=== PATIENT | male | born 1975 | race Caucasian/White ===

== ENCOUNTER 2023-02-19 12:18 | Emergency (ER) | payer OTHER ==
[2023-02-19 12:46] VITALS: TEMP 98.7
--- NOTE | 2023-02-19 13:42 | ED ---
Recheck HPI - General Chief Complaint: Recheck/Abnormal Lab/Rx Stated Complaint: edema in legs and feet Time Seen by Provider: 02/19/23 12:37 Source: patient, RN notes reviewed, old records reviewed Mode of arrival: ambulatory Limitations: no limitations - History of Present Illness Initial Comments: This is a 48-year-old male the ER today. Presents today for evaluation of lower extremity edema swelling and states is been off his medications and take medications as prescribed. Patient is no shortness of breath cough congestion chest pain, patient has no other significant complaint here in the ER. MD Complaint: medication refill request -: week(s) Returns Today for: request for prescription Symptoms Since Prior Visit: no new symptoms Context: planned re-check, ran out of medication Associated Symptoms: none Treatments Prior to Arrival: other (0) - Related Data Home Medications Medication Instructions Recorded Confirmed Ofloxacin 0.3% Otic Soln [Floxin 5 drops RIGHT EAR BID 09/22/14 09/22/14 Ear Drops] Previous Rx's Medication Instructions Recorded Amoxicillin/Potassium Clav 1 each PO Q12HR #20 tab 09/22/14 [Augmentin 875-125 Tablet] DULoxetine HCL [Cymbalta] 30 mg PO DAILY #60 cap 02/19/23 metFORMIN HCL [Glucophage] 500 mg PO BID #60 tab 02/19/23 Allergies Allergy/AdvReac Type Severity Reaction Status Date / Time No Known Allergies Allergy Verified 02/19/23 12:27 Review of Systems ROS Statement: Those systems with pertinent positive or pertinent negative responses have been documented in the HPI. ROS Other: All systems not noted in ROS Statement are negative. Past Medical History Past Medical History: Diabetes Mellitus History of Any Multi-Drug Resistant Organisms: None Reported Past Surgical History: No Surgical Hx Reported Past Psychological History: Anxiety Smoking Status: Never smoker Past Alcohol Use History: None Reported Past Drug Use History: None Reported General Exam Limitations: no limitations General appearance: alert, in no apparent distress Head exam: Present: atraumatic, normocephalic, normal inspection Eye exam: Present: normal appearance, PERRL, EOMI. Absent: scleral icterus, conjunctival injection, periorbital swelling ENT exam: Present: normal exam, mucous membranes moist Neck exam: Present: normal inspection. Absent: tenderness, meningismus, lymphadenopathy Respiratory exam: Present: normal lung sounds bilaterally. Absent: respiratory distress, wheezes, rales, rhonchi, stridor Cardiovascular Exam: Present: regular rate, normal rhythm, normal heart sounds. Absent: systolic murmur, diastolic murmur, rubs, gallop, clicks GI/Abdominal exam: Present: soft, normal bowel sounds. Absent: distended, tenderness, guarding, rebound, rigid Extremities exam: Present: normal inspection, full ROM, normal capillary refill. Absent: tenderness, pedal edema, joint swelling, calf tenderness Back exam: Present: normal inspection Neurological exam: Present: alert, oriented X3, CN II-XII intact Psychiatric exam: Present: normal affect, normal mood Skin exam: Present: warm, dry, intact, normal color. Absent: rash Course Vital Signs 02/19/23 02/19/23 12:24 13:54 Temperature 98.7 F Pulse Rate 115 H 98 Respiratory 20 18 Rate Blood Pressure 126/84 122/80 O2 Sat by Pulse 99 97 Oximetry - Reevaluation(s) Reevaluation #1: Medical records reviewed Reevaluation #2: Patient is in no distress here in the emergency department Reevaluation #3: Patient informed of results and questions answered Reevaluation #4: Was pt. sent in by a medical professional or institution (, PA, [employer], urgent care, hospital, or fpc...) When possible be specific @ -no Did you speak to anyone other than the patient for history (EMS, parent, family, police, friend...)? What history was obtained from this source @ -no Did you review nursing and triage notes (agree or disagree)? Why? @ -agree Are old charts reviewed (outside hosp., previous admission, EMS record, old EKG, old radiological studies, urgent care reports/EKG's, fpc records)? Report findings @ -yes Differential Diagnosis (chest pain, altered mental status, abdominal pain women, abdominal pain men, vaginal bleeding, weakness, fever, dyspnea, syncope, headache, dizziness, GI bleed, back pain, seizure, CVA, palpatations, mental health, musculoskeletal)? @ -prior EKG interpreted by me (3pts min.). @ -no X-rays interpreted by me (1pt min.). @ -no CT interpreted by me (1pt min.). @ -no U/S interpreted by me (1pt. min.). @ -no What testing was considered but not performed or refused? (CT, X-rays, U/S, labs)? Why? @ -none What meds were considered but not given or refused? Why? @ -none Did you discuss the management of the patient with other professionals (professionals i.e. , PA, [employer], lab, RT, psych nurse, licensed social worker, bindery helper, teacher, security control room officer, showcase trimmer)? Give summary @ -no Was smoking cessation discussed for >3mins.? @ -no Was critical care preformed (if so, how long)? @ -no Were there social determinants of health that impacted care today? How? (Homelessness, low income, unemployed, alcoholism, drug addiction, transportation, low edu. Level, literacy, decrease access to med. care, shelter, rehab)? @ -none Was there de-escalation of care discussed even if they declined (Discuss DNR or withdrawal of care, Hospice)? DNR status @ -no What co-morbidities impacted this encounter? (DM, HTN, Smoking, COPD, CAD, Cancer, CVA, ARF, Chemo, Hep., AIDS, mental health diagnosis, sleep apnea, morbid obesity)? @ -none Was patient admitted / discharged? Hospital course, mention meds given and route, prescriptions, significant lab abnormalities, going to OR and other pertinent info. @ - 48 male to the emergency department for evaluation of lower extremity edema, patient's request for medication refill, he is without significant complaint Discharge Undiagnosed new problem with uncertain prognosis? @ -no Drug Therapy requiring intensive monitoring for toxicity (Heparin, Nitro, Insulin, Cardizem)? @ -no Were any procedures done? @ -no Diagnosis/symptom? @ -Medication refill with leg edema Acute, or Chronic, or Acute on Chronic? @ -Acute Uncomplicated (without systemic symptoms) or Complicated (systemic symptoms)? @ -Complicated Side effects of treatment? @ -no Exacerbation, Progression, or Severe Exacerbation? @ -exacerbation Poses a threat to life or bodily function? How? (Chest pain, [place], [place], pneumonia, PE, COPD, DKA, ARF, appy, cholecystitis, CVA, Diverticulitis, Homicidal, Suicidal, threat to staff... and all critical care pts) @ -yes . Medical noncompliance Reevaluation #5: Differential Dyspnea: Coronary syndrome, arrhythmia, tamponade, asthma, COPD, pulmonary embolism, pneumonia, pneumothorax, pulmonary effusion, anaphylaxis, diabetic ketoacidosis, flailed chest, pulmonary contusion, diaphragmatic rupture, anemia, neuromuscular, this is not meant to be an all-inclusive list. Medical Decision Making - Medical Decision Making 48 male to the emergency department for evaluation of lower extremity edema, patient's request for medication refill, he is without significant complaint Disposition Clinical Impression: Encounter for medication refill, Bilateral leg edema Disposition: HOME SELF-CARE Condition: Good Instructions (If sedation given, give patient instructions): Medicine Refill (ED) Prescriptions: DULoxetine HCL [Cymbalta] 30 mg PO DAILY #60 cap metFORMIN HCL [Glucophage] 500 mg PO BID #60 tab Is patient prescribed a controlled substance at d/c from ED?: No Referrals: Freya Tidwell DO [Primary Care Provider] - 1-2 days Time of Disposition: 13:40
[2023-02-19 14:14] VITALS: BP 122/80; PULSE 98; RESP 18
== END 2023-02-19 13:55 | disposition home or self-care (01) ==
LOC: EC 12:18
DX: Z76.0 Encounter for issue of repeat prescription (principal); R60.0 Localized edema; E11.9 Type 2 diabetes mellitus without complications; Z86.59 Personal history of other mental and behavioral disorders
CPT/HCPCS: 99283

== ENCOUNTER 2024-06-15 10:13 | Emergency (ER) | payer OTHER ==
[2024-06-15 10:19] LABS: Glucose,Whole Blood 390 mg/dL (70-110)
--- NOTE | 2024-06-15 10:38 | ED ---
Recheck HPI - General Chief Complaint: Recheck/Abnormal Lab/Rx Stated Complaint: Leg Pain Weakness Time Seen by Provider: 06/15/24 10:38 Source: patient, RN notes reviewed Mode of arrival: ambulatory Limitations: no limitations - History of Present Illness Initial Comments: 41-year-old male with a past medical history significant of diabetes mellitus type 2 presenting to the emergency department for evaluation of bilateral feet pain. Patient states he has known neuropathy and reports for the past 2 days he has had extreme pain to bilateral feet. He has not taken anything for pain at this time. He has tried gabapentin in the past but states it made him have mood swings and he stopped taking it. Patient also reports his sugars have been high. He does not check his sugars at home and takes metformin 500 mg twice daily. He has been taking his medication as prescribed. He also takes baby aspirin and Lipitor. Patient states he is following up with his PCP but as he does not have a vehicle at this time is having difficulties following up with them. He denies any fevers, chills, nausea, vomiting, chest pain, shortness of breath, dizziness, lightheadedness, headache, abdominal pain, urinary complaints or peripheral edema. - Related Data Home Medications Medication Instructions Recorded Confirmed Aspirin EC [Ecotrin Low Dose] 81 mg PO HS 06/15/24 06/15/24 Gabapentin [Neurontin] 300 mg PO BID PRN 06/15/24 06/15/24 Rosuvastatin [Crestor] 10 mg PO DAILY 06/15/24 06/15/24 lisinopriL [Zestril] 5 mg PO HS 06/15/24 06/15/24 Previous Rx's Medication Instructions Recorded metFORMIN HCL [Glucophage] 500 mg PO BID #60 tab 02/19/23 Allergies Allergy/AdvReac Type Severity Reaction Status Date / Time No Known Allergies Allergy Verified 06/15/24 11:41 Review of Systems ROS Statement: Those systems with pertinent positive or pertinent negative responses have been documented in the HPI. ROS Other: All systems not noted in ROS Statement are negative. Past Medical History Past Medical History: Diabetes Mellitus History of Any Multi-Drug Resistant Organisms: None Reported Past Surgical History: No Surgical Hx Reported Past Psychological History: Anxiety Smoking Status: Never smoker Past Alcohol Use History: None Reported Past Drug Use History: None Reported General Exam Limitations: no limitations General appearance: alert, in no apparent distress Respiratory exam: Present: normal lung sounds bilaterally. Absent: respiratory distress, wheezes, rales, rhonchi, stridor Cardiovascular Exam: Present: regular rate, normal rhythm, normal heart sounds. Absent: systolic murmur, diastolic murmur, rubs, gallop, clicks Extremities exam: Present: normal inspection, full ROM, normal capillary refill (2+ DP/PT bilateral pulses). Absent: tenderness, pedal edema, joint swelling, calf tenderness Neurological exam: Present: alert, oriented X3, CN II-XII intact Skin exam: Present: warm, dry, intact, normal color, other (no wounds/ulcers/rashes/skin breakdown). Absent: rash Course Vital Signs 06/15/24 06/15/24 10:15 12:51 Temperature 97.3 F L 97.9 F Pulse Rate 70 91 Respiratory 17 18 Rate Blood Pressure 123/87 130/90 O2 Sat by Pulse 95 100 Oximetry Medical Decision Making - Medical Decision Making Was pt. sent in by a medical professional or institution (, PA, BUSINESS IMPROVEMENT MANAGER, urgent care, hospital, or [facility]...) When possible be specific @ -No Did you speak to anyone other than the patient for history (EMS, parent, family, police, friend...)? What history was obtained from this source @ -No Did you review nursing and triage notes (agree or disagree)? Why? @ -I reviewed and agree with nursing and triage notes Were old charts reviewed (outside hosp., previous admission, EMS record, old EKG, old radiological studies, urgent care reports/EKG's, [facility] records)? Report findings @ -No old charts were reviewed Differential Diagnosis (chest pain, altered mental status, abdominal pain women, abdominal pain men, vaginal bleeding, weakness, fever, dyspnea, syncope, headache, dizziness, GI bleed, back pain, seizure, CVA, palpatations, mental health, musculoskeletal)? @ -Differential Musculoskeletal: Muscular strain, contusion, ligament sprain, fracture, arthritis, septic arthritis, bursitis, cellulitis, muscle spasm, nerve compression, DVT, arterial occlusion, herpes zoster, electrolyte abnormality, tumor.... This is not meant to be in all inclusive list EKG interpreted by me (3pts min.). @ -None done X-rays interpreted by me (1pt min.). @ -None done CT interpreted by me (1pt min.). @ -None done U/S interpreted by me (1pt. min.). @ -None done What testing was considered but not performed or refused? (CT, X-rays, U/S, labs)? Why? @ -None What meds were considered but not given or refused? Why? @ -Patient refused gabapentin and narcotics Did you discuss the management of the patient with other professionals (professionals i.e. , PA, BUSINESS IMPROVEMENT MANAGER, lab, RT, psych nurse, professor of social work, facilities operations technician, teacher, traffic maintenance officer, caseworker intake)? Give summary @ -Case management spoke with patient regarding further diabetes management. PCP follow-up scheduled by caseworker intake Was smoking cessation discussed for >3mins.? @ -No Was critical care preformed (if so, how long)? @ -No Were there social determinants of health that impacted care today? How? (Homelessness, low income, unemployed, alcoholism, drug addiction, transportation, low edu. Level, literacy, decrease access to med. care, residential, rehab)? @ -Patient does not currently have transportation Was there de-escalation of care discussed even if they declined (Discuss DNR or withdrawal of care, Hospice)? DNR status @ -No What co-morbidities impacted this encounter? (DM, HTN, Smoking, COPD, CAD, Cancer, CVA, ARF, Chemo, Hep., AIDS, mental health diagnosis, sleep apnea, morbid obesity)? @ -Diabetes mellitus Was patient admitted / discharged? Hospital course, mention meds given and route, prescriptions, significant lab abnormalities, going to OR and other pertinent info. @ -Discharged. 49-year-old male presented ER for evaluated bilateral feet pain. Vitals acceptable limits. Bilateral lower extremities are neurovascularly i ntact. There are no wounds or skin breakdown noted. Patient has full active range of motion. Given patient's history of diabetes, laboratory studies were obtained patient is hyperglycemic at 371 for which he received 5 units subcutaneous insulin. Positive acetone the patient is not acidotic. Anion gap 9. Repeat blood sugar 380. Patient received another 5 units subcutaneous insulin. Symptomatic control in the ER, with minor improvement. Case management spoke with patient and established close PCP follow-up. Resources provided to patient for further diabetes management. Conservative treatment options discussed. I advised [id number] medications for pain control as patient refuses narcotics and gabapentin. Continue metformin. Patient is stable for discharge with close outpatient follow-up to PCP. Return parameters discussed. Patient discharged stable condition. Patient verbally expressed understanding and agreement with care plan. Case discussed with ED attending, Stacy. Undiagnosed new problem with uncertain prognosis? @ -No Drug Therapy requiring intensive monitoring for toxicity (Heparin, Nitro, Insulin, Cardizem)? @ -No Were any procedures done? @ -No Diagnosis/symptom? @ -Neuropathy/diabetes mellitus Acute, or Chronic, or Acute on Chronic? @ -Acute/chronic Uncomplicated (without systemic symptoms) or Complicated (systemic symptoms)? @ -Uncomplicated Side effects of treatment? @ -No Exacerbation, Progression, or Severe Exacerbation? @ -No Poses a threat to life or bodily function? How? (Chest pain, [place], [place], pneumonia, PE, COPD, DKA, ARF, appy, cholecystitis, CVA, Diverticulitis, Homicidal, Suicidal, threat to staff... and all critical care pts) @ -No - Lab Data Result diagrams: 06/15/24 10:49 06/15/24 10:49 Lab Results 06/15/24 06/15/24 06/15/24 Range/Units 10:18 10:49 10:49 WBC 6.53 (4.50-10.00) 10*3/uL RBC 5.05 (4.40-5.60) 10*6/uL Hgb 15.9 (13.0-17.0) g/dL Hct 44.4 (39.6-50.0) % MCV 87.9 (80.0-97.0) fL MCH 31.5 (27.0-32.0) pg MCHC 35.8 (32.0-37.0) g/dL Plt Count 192 (140-440) 10*3/uL MPV 11.8 (9.5-12.2) fL Immature Gran % (Auto) 0.2 % Neutrophils % 63.1 % Lymphocytes % 29.2 % Monocytes % 5.8 % Eosinophils % 1.1 % Basophils % 0.6 % Immature Gran # 0.01 (0.00-0.04) 10*3/uL Neutrophils # 4.12 (1.80-7.70) 10*3/uL Lymphocytes # 1.91 (0.90-5.00) 10*3/uL Monocytes # 0.38 (0.20-1.00) 10*3/uL Eosinophils # 0.07 (0.04-0.35) 10*3/uL Basophils # 0.04 (0.00-0.10) 10*3/uL Sodium 134 L (137-145) mmol/L Potassium 4.4 (3.5-5.1) mmol/L Chloride 95 L (98-107) mmol/L Carbon Dioxide 30 (22-30) mmol/L Anion Gap 9 mmol/L BUN 19 (9-20) mg/dL Creatinine 0.68 (0.66-1.25) mg/dL Est GFR (CKD-EPI)AfAm >90 (>60 ml/min/1.73 sqM) Est GFR (CKD-EPI)NonAf >90 (>60 ml/min/1.73 sqM) Glucose 371 H (74-99) mg/dL POC Glucose (mg/dL) 390 H (70-110) mg/dL POC Glu Scientific Research Manager ID Mikala Cindy Calcium 10.1 (8.4-10.2) mg/dL Total Bilirubin 0.7 (0.2-1.3) mg/dL AST 17 (17-59) U/L ALT 15 (4-49) U/L Alkaline Phosphatase 84 (38-126) U/L Total Protein 7.0 (6.3-8.2) g/dL Albumin 4.7 (3.5-5.0) g/dL Acetone, Qual Positive (Negative) 06/15/24 Range/Units 12:31 WBC (4.50-10.00) 10*3/uL RBC (4.40-5.60) 10*6/uL Hgb (13.0-17.0) g/dL Hct (39.6-50.0) % MCV (80.0-97.0) fL MCH (27.0-32.0) pg MCHC (32.0-37.0) g/dL Plt Count (140-440) 10*3/uL MPV (9.5-12.2) fL Immature Gran % (Auto) % Neutrophils % % Lymphocytes % % Monocytes % % Eosinophils % % Basophils % % Immature Gran # (0.00-0.04) 10*3/uL Neutrophils # (1.80-7.70) 10*3/uL Lymphocytes # (0.90-5.00) 10*3/uL Monocytes # (0.20-1.00) 10*3/uL Eosinophils # (0.04-0.35) 10*3/uL Basophils # (0.00-0.10) 10*3/uL Sodium (137-145) mmol/L Potassium (3.5-5.1) mmol/L Chloride (98-107) mmol/L Carbon Dioxide (22-30) mmol/L Anion Gap mmol/L BUN (9-20) mg/dL Creatinine (0.66-1.25) mg/dL Est GFR (CKD-EPI)AfAm (>60 ml/min/1.73 sqM) Est GFR (CKD-EPI)NonAf (>60 ml/min/1.73 sqM) Glucose (74-99) mg/dL POC Glucose (mg/dL) 380 H (70-110) mg/dL POC Glu Scientific Research Manager ID Kerwin Lety Calcium (8.4-10.2) mg/dL Total Bilirubin (0.2-1.3) mg/dL AST (17-59) U/L ALT (4-49) U/L Alkaline Phosphatase (38-126) U/L Total Protein (6.3-8.2) g/dL Albumin (3.5-5.0) g/dL Acetone, Qual (Negative) Disposition Clinical Impression: Neuropathy Disposition: HOME SELF-CARE Condition: Stable Instructions (If sedation given, give patient instructions): Diabetic Peripheral Neuropathy (ED), Diabetes and Nutrition (ED), Type 2 Diabetes Management for Adults (ED) Additional Instructions: Dial 211 for community resources in your area. You will be connected with someone that is able to give you more specific resources. Is patient prescribed a controlled substance at d/c from ED?: No Referrals: Nonstaff,Physician [Primary Care Provider] - 06/19/24 10:30 am (Appointment with CHANELL García [id number] [facility] phone:[phone]) Forms: Community Resources Time of Disposition: 12:17
[2024-06-15] MEDS: SODIUM CHLORIDE 0.9% 1,000 ML IV ONE (10:51)
[2024-06-15] MEDS: KETOROLAC 15 MG/ML 1 ML VIAL IVP STA (10:52)
[2024-06-15 10:59] LABS: Basophils # (A) 0.04 10*3/uL (0.00-0.10); Basophils % (A) 0.6 %; Eosinophils # (A) 0.07 10*3/uL (0.04-0.35); Eosinophils % (A) 1.1 %; HCT 44.4 % (39.6-50.0); HGB 15.9 g/dL (13.0-17.0); Lymphocytes # (A) 1.91 10*3/uL (0.90-5.00); Lymphocytes % (A) 29.2 %; MCH 31.5 pg (27.0-32.0); MCHC 35.8 g/dL (32.0-37.0); MCV 87.9 fL (80.0-97.0); Mean Platelet Volume 11.8 fL (9.5-12.2); Monocytes # (A) 0.38 10*3/uL (0.20-1.00); Monocytes % (A) 5.8 %; Neutrophils # (A) 4.12 10*3/uL (1.80-7.70); Neutrophils % (A) 63.1 %; Platelet Count 192 10*3/uL (140-440); RBC 5.05 10*6/uL (4.40-5.60); RDW 11.9 % (11.5-14.5); WBC 6.53 10*3/uL (4.50-10.00)
[2024-06-15 11:19] LABS: ALT 15 U/L (4-49); AST 17 U/L (17-59); African American GFR (CKD) >90 (>60 ml/min/1.73 sqM); Albumin 4.7 g/dL (3.5-5.0); Alkaline Phosphatase 84 U/L (38-126); Anion Gap 9 mmol/L; Blood Urea Nitrogen 19 mg/dL (9-20); Calcium 10.1 mg/dL (8.4-10.2); Carbon Dioxide 30 mmol/L (22-30); Chloride 95 mmol/L (98-107); Glucose 371 mg/dL (74-99); Non-African American GFR(CKD) >90 (>60 ml/min/1.73 sqM); Potassium 4.4 mmol/L (3.5-5.1); Sodium 134 mmol/L (137-145); Total Bilirubin 0.7 mg/dL (0.2-1.3)
[2024-06-15] MEDS: INSULIN LISPRO (HumaLOG) 100 UNIT/ML 10 mL VL SQ ONE ×2 (12:03→12:47)
[2024-06-15] MEDS: ACETAMINOPHEN TAB 500 MG TAB PO STA (12:04)
[2024-06-15 12:33] LABS: Glucose,Whole Blood 380 mg/dL (70-110)
[2024-06-15 12:53] VITALS: BP 130/90; PULSE 91; RESP 18; TEMP 97.9
== END 2024-06-15 12:52 | disposition home or self-care (01) ==
LOC: EC 10:13
DX: E11.40 Type 2 diabetes mellitus with diabetic neuropathy, unspecified (principal)
CPT/HCPCS: 36415; 80053; 82009; 85025; 99283; 96374; 96361; J1885

== ENCOUNTER 2024-08-28 08:53 | Emergency (ER) | payer OTHER ==
--- NOTE | 2024-08-28 09:31 | ED ---
General Adult HPI - General Source: patient, RN notes reviewed Mode of arrival: wheelchair Limitations: no limitations <Reji Shetty - Last Filed: 09/02/24 06:21> <Rolando Colón - Last Filed: 09/04/24 07:13> - General Stated complaint: Hypoclycemia Time Seen by Provider: 08/28/24 09:31 - History of Present Illness Initial comments: Quick note: 49-year-old male presented the ER for evaluation of numerous complaints. Patient is a known type II diabetic and states he believes his sugar is low. Patient also reports neuropathy and sore muscles. (Reji Shetty) - Related Data Home Medications Medication Instructions Recorded Confirmed Aspirin EC [Ecotrin Low Dose] 81 mg PO HS 06/15/24 06/15/24 Gabapentin [Neurontin] 300 mg PO BID PRN 06/15/24 06/15/24 Rosuvastatin [Crestor] 10 mg PO DAILY 06/15/24 06/15/24 lisinopriL [Zestril] 5 mg PO HS 06/15/24 06/15/24 Previous Rx's Medication Instructions Recorded metFORMIN HCL [Glucophage] 500 mg PO BID #60 tab 02/19/23 Allergies Allergy/AdvReac Type Severity Reaction Status Date / Time No Known Allergies Allergy Verified 08/28/24 09:54 Review of Systems ROS Other: All systems not noted in ROS Statement are negative. <Reji Shetty - Last Filed: 09/02/24 06:21> ROS Other: All systems not noted in ROS Statement are negative. <Rolando Colón - Last Filed: 09/04/24 07:13> ROS Statement: Those systems with pertinent positive or pertinent negative responses have been documented in the HPI. Past Medical History Past Medical History: Diabetes Mellitus History of Any Multi-Drug Resistant Organisms: None Reported Past Surgical History: No Surgical Hx Reported Past Psychological History: Anxiety Smoking Status: Never smoker Past Alcohol Use History: None Reported Past Drug Use History: None Reported <Reji Shetty - Last Filed: 09/02/24 06:21> General Exam <Reji Shetty - Last Filed: 09/02/24 06:21> - General Exam Comments Initial Comments: Visual Physical Exam Vital signs reviewed General: Well-appearing, nontoxic, no acute distress. Head: Normocephalic, atraumatic Eyes: PERRLA, EOMI ENT: Airway patent Chest: Nonlabored breathing Skin: No visual rash, normal skin tone Neuro: Alert and oriented 3 Musculoskeletal: No gross abnormalities (Reji Shetty) Course Vital Signs 08/28/24 09:51 Temperature 98.6 F Pulse Rate 106 H Respiratory 22 Rate Blood Pressure 128/88 O2 Sat by Pulse 99 Oximetry Medical Decision Making <Reji Shetty - Last Filed: 09/02/24 06:21> - Medical Decision Making I performed the quick note portion of this chart. Electronically signed by Reji Leahy PA-C Patient eloped from emergency department prior to completion of medical treatment. (Reij Shetty) - Lab Data Lab Results 08/28/24 Range/Units 10:46 POC Glucose (mg/dL) 418 H (70-110) mg/dL POC Glu Phlebotomist Medical Lab Assistant ID Almaz Bazan Disposition Time of Disposition: 06:22 <Reji Shetty - Last Filed: 09/02/24 06:21> <Rolando Colón - Last Filed: 09/04/24 07:13> Clinical Impression: Left against medical advice, Dizziness Disposition: LEFT AGAINST MEDICAL ADVICE Condition: Undetermined Referrals: None,Stated [Primary Care Provider] - 1-2 days Forms: Area PCPs
[2024-08-28 09:54] VITALS: BP 128/88; PULSE 106; RESP 22; TEMP 98.6
[2024-08-28 10:59] LABS: Glucose,Whole Blood 418 mg/dL (70-110)
== END 2024-08-28 10:00 | disposition left against medical advice (07) ==
LOC: EC 08:53
DX: R42 Dizziness and giddiness (principal); Z53.29 Procedure and treatment not carried out because of patient's decision for other reasons
CPT/HCPCS: 36415; 99284

== ENCOUNTER 2024-10-03 19:53 | Emergency (ER) | payer OTHER ==
[2024-10-03 20:02] LABS: Glucose,Whole Blood 486 mg/dL (70-110)
[2024-10-03 20:04] VITALS: RESP 17; TEMP 97.9
--- NOTE | 2024-10-03 20:32 | ED ---
Weakness HPI - General Chief complaint: Weakness Stated complaint: Hyperglycemia Time Seen by Provider: 10/03/24 20:30 Source: patient, EMS, RN notes reviewed, old records reviewed Mode of arrival: EMS Limitations: no limitations - History of Present Illness Initial comments: 49-year-old male presented to the ER via EMS for evaluation of weakness. Patient presenting from [facility] currently residing there for EtOH and cocaine abuse he reports he has been there for approximately 1 week. Patient was a past medical history significant of noncompliant insulin-dependent diabetes mellitus. He reports around 6 PM this evening while in a [employer] service he started to feel very weak, lethargic and dizzy. Patient reports feeling nauseous at that time but denies actual vomiting. Patient also admits to shortness of breath but denies any chest pain, pressure or palpitations. Denies recent fevers or chills. Patient denies any current headache, double blurry vision, slurred speech, chest pain, shortness of breath, abdominal pain, diarrhea/constipation, urinary complaints or peripheral edema. Patient does admit to a history of neuropathy. Per [facility] records patient received Novolin 5-10 units and metformin 500 mg prior to dinner at 4:20 PM. - Related Data Home Medications Medication Instructions Recorded Confirmed Aspirin EC [Ecotrin Low Dose] 81 mg PO HS 06/15/24 06/15/24 Gabapentin [Neurontin] 300 mg PO BID PRN 06/15/24 06/15/24 Rosuvastatin [Crestor] 10 mg PO DAILY 06/15/24 06/15/24 lisinopriL [Zestril] 5 mg PO HS 06/15/24 06/15/24 Previous Rx's Medication Instructions Recorded metFORMIN HCL [Glucophage] 500 mg PO BID #60 tab 02/19/23 Allergies Allergy/AdvReac Type Severity Reaction Status Date / Time No Known Allergies Allergy Verified 10/03/24 20:04 Review of Systems ROS Statement: Those systems with pertinent positive or pertinent negative responses have been documented in the HPI. ROS Other: All systems not noted in ROS Statement are negative. Past Medical History Past Medical History: Diabetes Mellitus Additional Past Medical History / Comment(s): Neuropathy History of Any Multi-Drug Resistant Organisms: None Reported Past Surgical History: No Surgical Hx Reported Additional Past Surgical History / Comment(s): Wrist reconstructive surgery Past Psychological History: Anxiety Smoking Status: Never smoker Past Alcohol Use History: Abuse Past Drug Use History: Cocaine General Exam Limitations: no limitations General appearance: alert, in no apparent distress Eye exam: Present: normal appearance, PERRL, EOMI. Absent: scleral icterus, conjunctival injection, periorbital swelling Pupils: Present: normal accommodation ENT exam: Present: normal exam, normal oropharynx, mucous membranes moist Respiratory exam: Present: normal lung sounds bilaterally. Absent: respiratory distress, wheezes, rales, rhonchi, stridor Cardiovascular Exam: Present: regular rate, normal rhythm, normal heart sounds. Absent: systolic murmur, diastolic murmur, rubs, gallop, clicks GI/Abdominal exam: Present: soft, normal bowel sounds. Absent: distended, tenderness, guarding, rebound, rigid Extremities exam: Present: normal inspection, full ROM, normal capillary refill. Absent: tenderness, pedal edema, joint swelling, calf tenderness Neurological exam: Present: alert, oriented X3, CN II-XII intact Skin exam: Present: warm, dry, intact, normal color. Absent: rash Course Vital Signs 10/03/24 10/03/24 10/04/24 20:00 22:42 00:14 Temperature 97.9 F Pulse Rate 94 89 80 Respiratory 17 17 17 Rate Blood Pressure 119/92 125/90 123/88 O2 Sat by Pulse 99 99 96 Oximetry Medical Decision Making - Medical Decision Making Was pt. sent in by a medical professional or institution (BORIS Elias, CHILD AND YOUTH PROGRAM ASSISTANT, urgent care, hospital, or [place] health care facility...) When possible be specific @ -Patient sent by [facility] for evaluation of weakness. Did you speak to anyone other than the patient for history (EMS, parent, family, police, friend...)? What history was obtained from this source @ -No Did you review nursing and triage notes (agree or disagree)? Why? @ -I reviewed and agree with nursing and triage notes Were old charts reviewed (outside hosp., previous admission, EMS record, old EKG, old radiological studies, urgent care reports/EKG's, [place] health care facility records)? Report findings @ -No old charts were reviewed Differential Diagnosis (chest pain, altered mental status, abdominal pain women, abdominal pain men, vaginal bleeding, weakness, fever, dyspnea, syncope, headache, dizziness, GI bleed, back pain, seizure, CVA, palpatations, mental health, musculoskeletal)? @ -Differential Weakness:Hypoglycemia, shock, sepsis, hyponatremia, anemia, infection, OR, ETOH, adverse medicine reaction, overdose, stroke, this is not meant to be an all-inclusive list. EKG interpreted by me (3pts min.). @ -As above X-rays interpreted by me (1pt min.). @ -CXR interpreted me negative for consolidation, pneumothorax or pleural effusions. CT interpreted by me (1pt min.). @ -CT brain negative for acute intracranial process. Small area of thickening along left lateral scalp. U/S interpreted by me (1pt. min.). @ -None done What testing was considered but not performed or refused? (CT, X-rays, U/S, labs)? Why? @ -None What meds were considered but not given or refused? Why? @ -None Did you discuss the management of the patient with other professionals (professionals i.e. , PA, CHILD AND YOUTH PROGRAM ASSISTANT, lab, RT, psych nurse, social media coordinator, steel erecting pusher, teacher, sales promotion officer, bilingual case manager)? Give summary @ -No Was smoking cessation discussed for >3mins.? @ -No Was critical care preformed (if so, how long)? @ -No Were there social determinants of health that impacted care today? How? (Christal elessness, low income, unemployed, alcoholism, drug addiction, transportation, low edu. Level, literacy, decrease access to med. care, [facility], rehab)? @ -Patient currently residing at [facility] for alcohol and cocaine abuse. Was there de-escalation of care discussed even if they declined (Discuss DNR or withdrawal of care, Hospice)? DNR status @ -No What co-morbidities impacted this encounter? (DM, HTN, Smoking, COPD, CAD, Cancer, CVA, ARF, Chemo, Hep., AIDS, mental health diagnosis, sleep apnea, morbid obesity)? @ -Diabetes mellitus,Cocaine abuse, alcoholism Was patient admitted / discharged? Hospital course, mention meds given and route, prescriptions, significant lab abnormalities, going to OR and other pertinent info. @ -Discharge. 49-year-old male presented the ER via EMS from [facility] for evaluation of weakness.Upon arrival vital signs stable. Patient in no signs acute distress nontoxic-appearing. No acute neurological findings on exam. Laboratory studies obtained remarkable for hyperglycemia at 428 for which patient received 8 units of subcutaneous insulin with improvement of glucose to 277 at discharge. Lactate 3.2 for which patient received IV fluids. Troponin 0.013. Acetone negative. Anion gap 12. No indications of diabetic ketoacidosis. Urinalysis 4+ glucose, negative ketones, no evidence of infection. Viral swabs negative. Chest x-ray negative. CT brain showing no acute intracranial process. EKG showing a sinus rhythm no acute evidence of infarct or ischemia. Upon reevaluation, patient resting comfortably in exam room watching TV no signs of acute distress. Patient is eager for discharge and reporting improvement after IV fluids. Symptoms believed to be due to uncontrolled diabetes and hyperglycemia. Patient be discharged stable condition back to [facility]. Return parameters discussed. Patient verbally expressed understanding agree with care plan. Case discussed with ED attending of Dr. Garret rich. Undiagnosed new problem with uncertain prognosis? @ -No Drug Therapy requiring intensive monitoring for toxicity (Heparin, Nitro, Insulin, Cardizem)? @ -No Were any procedures done? @ -No Diagnosis/symptom? @ -Hyperglycemia/weakness Acute, or Chronic, or Acute on Chronic? @ -Acute Uncomplicated (without systemic symptoms) or Complicated (systemic symptoms)? @ -Complicated Side effects of treatment? @ -No Exacerbation, Progression, or Severe Exacerbation? @ -No Poses a threat to life or bodily function? How? (Chest pain, USA, OR, pneumonia, PE, COPD, DKA, ARF, appy, cholecystitis, CVA, Diverticulitis, Homicidal, Suicidal, threat to staff... and all critical care pts) @ -No - Lab Data Result diagrams: 10/03/24 20:25 10/03/24 20:25 Lab Results 10/03/24 10/03/24 10/03/24 Range/Units 20:01 20:25 20:25 WBC 6.53 (4.50-10.00) 10*3/uL RBC 5.25 (4.40-5.60) 10*6/uL Hgb 16.3 (13.0-17.0) g/dL Hct 48.0 (39.6-50.0) % MCV 91.4 (80.0-97.0) fL MCH 31.0 (27.0-32.0) pg MCHC 34.0 (32.0-37.0) g/dL Plt Count 207 (140-440) 10*3/uL MPV 12.0 (9.5-12.2) fL Immature Gran % (Auto) 0.3 % Neutrophils % 55.0 % Lymphocytes % 36.6 % Monocytes % 5.5 % Eosinophils % 1.7 % Basophils % 0.9 % Immature Gran # 0.02 (0.00-0.04) 10*3/uL Neutrophils # 3.59 (1.80-7.70) 10*3/uL Lymphocytes # 2.39 (0.90-5.00) 10*3/uL Monocytes # 0.36 (0.20-1.00) 10*3/uL Eosinophils # 0.11 (0.04-0.35) 10*3/uL Basophils # 0.06 (0.00-0.10) 10*3/uL PT (10.0-12.5) sec INR (<1.2) APTT (22.0-30.0) sec Sodium 135 L (137-145) mmol/L Potassium 5.3 H (3.5-5.1) mmol/L Chloride 98 (98-107) mmol/L Carbon Dioxide 25 (22-30) mmol/L Anion Gap 12 mmol/L BUN 23 H (9-20) mg/dL Creatinine 0.67 (0.66-1.25) mg/dL Est GFR (CKD-EPI)AfAm >90 (>60 ml/min/1.73 sqM) Est GFR (CKD-EPI)NonAf >90 (>60 ml/min/1.73 sqM) Glucose 428 H (74-99) mg/dL POC Glucose (mg/dL) 486 H (70-110) mg/dL POC Glu Mayonnaise Mixer ID Liniarski Desiree Lactic Ac Sepsis Rflx Plasma Lactic Acid Edwin (0.7-2.0) mmol/L Calcium 10.2 (8.4-10.2) mg/dL Magnesium 1.9 (1.6-2.3) mg/dL Total Bilirubin 0.5 (0.2-1.3) mg/dL AST 30 (17-59) U/L ALT 16 (4-49) U/L Alkaline Phosphatase 121 (38-126) U/L Troponin I (0.000-0.034) ng/mL Total Protein 7.3 (6.3-8.2) g/dL Albumin 4.7 (3.5-5.0) g/dL Urine Color Urine Appearance (Clear) Urine pH (5.0-8.0) Ur Specific Benld (1.001-1.035) Urine Protein (Negative) Urine Glucose (UA) (Negative) Urine Ketones (Negative) Urine Blood (Negative) Urine Nitrite (Negative) Urine Bilirubin (Negative) Urine Urobilinogen (<2.0) mg/dL Ur Leukocyte Esterase (Negative) Acetone, Qual Negative (Negative) Influenza Type A (PCR) (Not Detectd) Influenza Type B (PCR) (Not Detectd) RSV (PCR) (Not Detectd) SARS-CoV-2 (PCR) (Not Detectd) 10/03/24 10/03/24 10/03/24 Range/Units 20:25 20:25 20:37 WBC (4.50-10.00) 10*3/uL RBC (4.40-5.60) 10*6/uL Hgb (13.0-17.0) g/dL Hct (39.6-50.0) % MCV (80.0-97.0) fL MCH (27.0-32.0) pg MCHC (32.0-37.0) g/dL Plt Count (140-440) 10*3/uL MPV (9.5-12.2) fL Immature Gran % (Auto) % Neutrophils % % Lymphocytes % % Monocytes % % Eosinophils % % Basophils % % Immature Gran # (0.00-0.04) 10*3/uL Neutrophils # (1.80-7.70) 10*3/uL Lymphocytes # (0.90-5.00) 10*3/uL Monocytes # (0.20-1.00) 10*3/uL Eosinophils # (0.04-0.35) 10*3/uL Basophils # (0.00-0.10) 10*3/uL PT 10.1 (10.0-12.5) sec INR 0.9 (<1.2) APTT 22.2 (22.0-30.0) sec Sodium (137-145) mmol/L Potassium (3.5-5.1) mmol/L Chloride (98-107) mmol/L Carbon Dioxide (22-30) mmol/L Anion Gap mmol/L BUN (9-20) mg/dL Creatinine (0.66-1.25) mg/dL Est GFR (CKD-EPI)AfAm (>60 ml/min/1.73 sqM) Est GFR (CKD-EPI)NonAf (>60 ml/min/1.73 sqM) Glucose (74-99) mg/dL POC Glucose (mg/dL) (70-110) mg/dL POC Glu Mayonnaise Mixer ID Lactic Ac Sepsis Rflx Plasma Lactic Acid Edwin 3.2 H* (0.7-2.0) mmol/L Calcium (8.4-10.2) mg/dL Magnesium (1.6-2.3) mg/dL Total Bilirubin (0.2-1.3) mg/dL AST (17-59) U/L ALT (4-49) U/L Alkaline Phosphatase (38-126) U/L Troponin I 0.013 (0.000-0.034) ng/mL Total Protein (6.3-8.2) g/dL Albumin (3.5-5.0) g/dL Urine Color Urine Appearance (Clear) Urine pH (5.0-8.0) Ur Specific Benld (1.001-1.035) Urine Protein (Negative) Urine Glucose (UA) (Negative) Urine Ketones (Negative) Urine Blood (Negative) Urine Nitrite (Negative) Urine Bilirubin (Negative) Urine Urobilinogen (<2.0) mg/dL Ur Leukocyte Esterase (Negative) Acetone, Qual (Negative) Influenza Type A (PCR) (Not Detectd) Influenza Type B (PCR) (Not Detectd) RSV (PCR) (Not Detectd) SARS-CoV-2 (PCR) (Not Detectd) 10/03/24 10/03/24 10/03/24 Range/Units 21:17 22:38 22:38 WBC (4.50-10.00) 10*3/uL RBC (4.40-5.60) 10*6/uL Hgb (13.0-17.0) g/dL Hct (39.6-50.0) % MCV (80.0-97.0) fL MCH (27.0-32.0) pg MCHC (32.0-37.0) g/dL Plt Count (140-440) 10*3/uL MPV (9.5-12.2) fL Immature Gran % (Auto) % Neutrophils % % Lymphocytes % % Monocytes % % Eosinophils % % Basophils % % Immature Gran # (0.00-0.04) 10*3/uL Neutrophils # (1.80-7.70) 10*3/uL Lymphocytes # (0.90-5.00) 10*3/uL Monocytes # (0.20-1.00) 10*3/uL Eosinophils # (0.04-0.35) 10*3/uL Basophils # (0.00-0.10) 10*3/uL PT (10.0-12.5) sec INR (<1.2) APTT (22.0-30.0) sec Sodium (137-145) mmol/L Potassium (3.5-5.1) mmol/L Chloride (98-107) mmol/L Carbon Dioxide (22-30) mmol/L Anion Gap mmol/L BUN (9-20) mg/dL Creatinine (0.66-1.25) mg/dL Est GFR (CKD-EPI)AfAm (>60 ml/min/1.73 sqM) Est GFR (CKD-EPI)NonAf (>60 ml/min/1.73 sqM) Glucose (74-99) mg/dL POC Glucose (mg/dL) (70-110) mg/dL POC Glu Mayonnaise Mixer ID Lactic Ac Sepsis Rflx Y Plasma Lactic Acid Edwin (0.7-2.0) mmol/L Calcium (8.4-10.2) mg/dL Magnesium (1.6-2.3) mg/dL Total Bilirubin (0.2-1.3) mg/dL AST (17-59) U/L ALT (4-49) U/L Alkaline Phosphatase (38-126) U/L Troponin I (0.000-0.034) ng/mL Total Protein (6.3-8.2) g/dL Albumin (3.5-5.0) g/dL Urine Color Colorless Urine Appearance Clear (Clear) Urine pH 5.0 (5.0-8.0) Ur Specific Benld 1.033 (1.001-1.035) Urine Protein Negative (Negative) Urine Glucose (UA) 4+ H (Negative) Urine Ketones Negative (Negative) Urine Blood Negative (Negative) Urine Nitrite Negative (Negative) Urine Bilirubin Negative (Negative) Urine Urobilinogen <2.0 (<2.0) mg/dL Ur Leukocyte Esterase Negative (Negative) Acetone, Qual (Negative) Influenza Type A (PCR) Not Detected (Not Detectd) Influenza Type B (PCR) Not Detected (Not Detectd) RSV (PCR) Not Detected (Not Detectd) SARS-CoV-2 (PCR) Not Detected (Not Detectd) 10/03/24 10/03/24 Range/Units 23:27 23:39 WBC (4.50-10.00) 10*3/uL RBC (4.40-5.60) 10*6/uL Hgb (13.0-17.0) g/dL Hct (39.6-50.0) % MCV (80.0-97.0) fL MCH (27.0-32.0) pg MCHC (32.0-37.0) g/dL Plt Count (140-440) 10*3/uL MPV (9.5-12.2) fL Immature Gran % (Auto) % Neutrophils % % Lymphocytes % % Monocytes % % Eosinophils % % Basophils % % Immature Gran # (0.00-0.04) 10*3/uL Neutrophils # (1.80-7.70) 10*3/uL Lymphocytes # (0.90-5.00) 10*3/uL Monocytes # (0.20-1.00) 10*3/uL Eosinophils # (0.04-0.35) 10*3/uL Basophils # (0.00-0.10) 10*3/uL PT (10.0-12.5) sec INR (<1.2) APTT (22.0-30.0) sec Sodium (137-145) mmol/L Potassium (3.5-5.1) mmol/L Chloride (98-107) mmol/L Carbon Dioxide (22-30) mmol/L Anion Gap mmol/L BUN (9-20) mg/dL Creatinine (0.66-1.25) mg/dL Est GFR (CKD-EPI)AfAm (>60 ml/min/1.73 sqM) Est GFR (CKD-EPI)NonAf (>60 ml/min/1.73 sqM) Glucose (74-99) mg/dL POC Glucose (mg/dL) 277 H (70-110) mg/dL POC Glu Mayonnaise Mixer ID Veronica Vega Lactic Ac Sepsis Rflx Plasma Lactic Acid Edwin 2.0 (0.7-2.0) mmol/L Calcium (8.4-10.2) mg/dL Magnesium (1.6-2.3) mg/dL Total Bilirubin (0.2-1.3) mg/dL AST (17-59) U/L ALT (4-49) U/L Alkaline Phosphatase (38-126) U/L Troponin I (0.000-0.034) ng/mL Total Protein (6.3-8.2) g/dL Albumin (3.5-5.0) g/dL Urine Color Urine Appearance (Clear) Urine pH (5.0-8.0) Ur Specific Benld (1.001-1.035) Urine Protein (Negative) Urine Glucose (UA) (Negative) Urine Ketones (Negative) Urine Blood (Negative) Urine Nitrite (Negative) Urine Bilirubin (Negative) Urine Urobilinogen (<2.0) mg/dL Ur Leukocyte Esterase (Negative) Acetone, Qual (Negative) Influenza Type A (PCR) (Not Detectd) Influenza Type B (PCR) (Not Detectd) RSV (PCR) (Not Detectd) SARS-CoV-2 (PCR) (Not Detectd) - EKG Data -: EKG Interpreted by Me EKG Comments: EKG taken at 20: 27 showing a sinus rhythm. No ST segment elevations or depressions. Ventricular rate 88, SD interval 145, QRS duration 91, QT/QTc 347/393. - Radiology Data Radiology results: report reviewed, image reviewed Disposition Clinical Impression: Hyperglycemia Disposition: HOME SELF-CARE Condition: Stable Instructions (If sedation given, give patient instructions): Diabetes and Exercise (ED) Additional Instructions: Continue to monitor sugars closely and take medications as prescribed. Follow- up closely with PCP. Return to the ER for any new or worsening concerns. Is patient prescribed a controlled substance at d/c from ED?: No Referrals: None,Stated [Primary Care Provider] - 1-2 days Forms: Area PCPs Time of Disposition: 00:02
[2024-10-03 20:56] LABS: INR 0.9 (<1.2); Partial Thromboplastin Time 22.2 sec (22.0-30.0); Prothrombin Time 10.1 sec (10.0-12.5)
[2024-10-03 21:22] LABS: ALT 16 U/L (4-49); AST 30 U/L (17-59); African American GFR (CKD) >90 (>60 ml/min/1.73 sqM); Albumin 4.7 g/dL (3.5-5.0); Alkaline Phosphatase 121 U/L (38-126); Anion Gap 12 mmol/L; Blood Urea Nitrogen 23 mg/dL (9-20); Calcium 10.2 mg/dL (8.4-10.2); Carbon Dioxide 25 mmol/L (22-30); Chloride 98 mmol/L (98-107); Glucose 428 mg/dL (74-99); Magnesium 1.9 mg/dL (1.6-2.3); Non-African American GFR(CKD) >90 (>60 ml/min/1.73 sqM); Potassium 5.3 mmol/L (3.5-5.1); Sodium 135 mmol/L (137-145); Total Protein 7.3 g/dL (6.3-8.2)
[2024-10-03] MEDS: SODIUM CHLORIDE 0.9% 1,000 ML IV ONE (21:24)
--- NOTE | 2024-10-03 21:28 | CT ---
EXAMINATION TYPE: CT brain wo con DATE OF EXAM: 10/03/2024 9:07 PM COMPARISON: None. CLINICAL INDICATION: Male, 49 years old with history of weakness, weakness, nausea TECHNIQUE: Brain: Axial CT images of the brain were obtained with coronal and sagittal reformats created and rev iewed. Contrast used: None. Oral contrast used: None. CT DLP: 1170.4 mGycm, Automated exposure control for dose reduction was used. FINDINGS: Brain: Extra-axial spaces: No abnormal extra-axial fluid collections. Ventricular system: Within normal limits Cerebral parenchyma: No acute intraparenchymal hemorrhage or mass effect. The dennison-white junction is well differentiated. Cerebellum: Unremarkable. Mass effect: No evidence of midline shift. Intracranial vasculature: unremarkable Soft tissues: Small area of skin thickening along the left lateral scalp. Calvarium/osseous structures: No depressed skull fracture. Paranasal sinuses and mastoid air cells: Mild scattered paranasal sinus disease. Visualized orbits: Orbital contents are intact. IMPRESSION: No acute intracranial process. Small area of attenuation/thickening along the left lateral scalp may relate to contusion versus other skin process. Correlate with exam. If clinical concern for an acute process persists consider correlation with MRI brain [facility], , 10/03/2024 9:25 PM
[2024-10-03 21:34] LABS: Basophils # (A) 0.06 10*3/uL (0.00-0.10); Basophils % (A) 0.9 %; Eosinophils # (A) 0.11 10*3/uL (0.04-0.35); Eosinophils % (A) 1.7 %; HCT 48.0 % (39.6-50.0); HGB 16.3 g/dL (13.0-17.0); Lymphocytes # (A) 2.39 10*3/uL (0.90-5.00); Lymphocytes % (A) 36.6 %; MCH 31.0 pg (27.0-32.0); MCHC 34.0 g/dL (32.0-37.0); MCV 91.4 fL (80.0-97.0); Monocytes # (A) 0.36 10*3/uL (0.20-1.00); Monocytes % (A) 5.5 %; Neutrophils # (A) 3.59 10*3/uL (1.80-7.70); Neutrophils % (A) 55.0 %; Platelet Count 207 10*3/uL (140-440); RBC 5.25 10*6/uL (4.40-5.60); RDW 12.7 % (11.5-14.5); WBC 6.53 10*3/uL (4.50-10.00)
--- NOTE | 2024-10-03 22:37 | XR ---
EXAMINATION TYPE: XR chest 2V DATE OF EXAM: 10/03/2024 8:59 PM COMPARISON: None CLINICAL INDICATION: Male, 49 years old with history of Weakness; [facility] TECHNIQUE: XR chest 2V Frontal and lateral views of the chest. FINDINGS: Lungs/Pleura: There is no evidence of pleural effusion, focal consolidation, or pneumothorax. Pulmonary vascularity: Unremarkable. Heart/mediastinum: Cardiomediastinal silhouette is unremarkable. Musculoskeletal: No acute osseous pathology. IMPRESSION: No acute cardiopulmonary disease/process. [facility], , 10/03/2024 10:34 PM
[2024-10-03] MEDS: INSULIN LISPRO (HumaLOG) 100 UNIT/ML 10 mL VL SQ ONE (22:41)
[2024-10-03 22:50] LABS: Bilirubin,Urine Negative (Negative); Blood,Urine Negative (Negative); Color,Urine Colorless; Glucose,Urine (UA) 4+ (Negative); Ketones,Urine Negative (Negative); Leukocyte Esterase,Urine Negative (Negative); Nitrite,Urine Negative (Negative); PH, Urine 5.0 (5.0-8.0); Protein,Urine Negative (Negative); Specific Gravity,Urine 1.033 (1.001-1.035); Urobilinogen,Urine <2.0 mg/dL (<2.0)
[2024-10-03 23:26] LABS: RSV Not Detected (Not Detectd)
[2024-10-03 23:41] LABS: Glucose,Whole Blood 277 mg/dL (70-110)
[2024-10-04 00:15] VITALS: BP 123/88; PULSE 80
== END 2024-10-04 00:15 | disposition home or self-care (01) ==
LOC: EC 19:53
DX: E11.65 Type 2 diabetes mellitus with hyperglycemia (principal); Z79.4 Long term (current) use of insulin
CPT/HCPCS: 36415; 70450; 71046; 80053; 81003; 82009; 83605; 83735; 84484; 85025; 85610; 85730; 87636; 93005; 96360; 99285